=== PATIENT | female | born 1945 | race Two or more races ===

== ENCOUNTER → 2018-01-27 | Outpatient (CLI) | payer BC ==
--- NOTE | 2018-01-27 17:34 | CARD ---
MR#: [id number] Date of Study: 01/27/2018 Ordering Physician: GIOVANNI PACHECO, Referring Physician: GIOVANNI PACHECO, Tech: Lisa Brown APPROVED REPORT EXAM: Two-dimensional and M-mode echocardiogram with Doppler and color Doppler. Other Information Quality : GoodHR: 64bpm INDICATION Dyspnea 2D DIMENSIONS RVDd2.3 (2.9-3.5cm)Left Atrium(2D)3.4 (1.6-4.0cm) IVSd1.4 (0.7-1.1cm)Aortic Root(2D)3.2 (2.0-3.7cm) LVDd4.2 (3.9-5.9cm)LVOT Diameter1.9 (1.8-2.4cm) PWd1.1 (0.7-1.1cm)LVDs3.0 (2.5-4.0cm) FS (%) 29.1 %SV44.6 ml LVEF(%)55.0 (>50%) Aortic Valve AoV Peak Malachi.163.6cm/sAoV VTI34.2cm AO Peak GR.10.7mmHgLVOT Peak Malachi.106.0cm/s AO Mean GR.6mmHgAVA (VMAX)1.86cm2 AI P 1/2 [id number] Mitral Valve MV E Clqsgata30.7cm/sMV DECEL [id number] MV A Hinmqmoy83.9cm/sE/A Ratio1.3 Tricuspid Valve TR P. Metvrgoc345nx/sRAP [id number] TR Peak Gr.[id number] Pulmonary Vein S1 Pfvalwes70.6cm/sD2 Gbjmgzli03.4cm/s PVa [id number] LEFT VENTRICLE The left ventricle is normal size. There is concentric left ventricular hypertrophy. The left ventric ular systolic function is normal and the ejection fraction is within normal range. The Ejection Fract ion is 55%. Transmitral Doppler flow pattern is normal for age. AORTIC VALVE The aortic valve is calcified but opens well. Doppler and Color Flow revealed mild aortic regurgitati on. There is no significant aortic valvular stenosis. MITRAL VALVE Mitral annular calcification is mild. Doppler and Color-flow revealed trace mitral regurgitation. TRICUSPID VALVE The tricuspid valve is normal in structure and function. Doppler and Color Flow revealed trace tricus pid regurgitation. PULMONIC VALVE The pulmonary valve is normal in structure and function. Doppler and Color Flow revealed no pulmonic valvular regurgitation. GREAT VESSELS The aortic root is normal in size. The IVC is normal in size and collapses >50% with inspiration. PERICARDIAL EFFUSION There is no evidence of significant pericardial effusion. Critical Notification Critical Value: No <Conclusion> The left ventricular systolic function is normal and the ejection fraction is within normal range. T he Ejection Fraction is 55%. There is concentric left ventricular hypertrophy. The aortic valve is calcified but opens well. Doppler and Color Flow revealed mild aortic regurgitation. Doppler and Color-flow revealed trace mitral regurgitation. Doppler and Color Flow revealed trace tricuspid regurgitation. The pulmonary valve is normal in structure and function. There is no evidence of significant pericardial effusion. Signed by : Giovanni Pacheco MD Electronically Approved : 01/27/2018 17:33:48
== END | disposition home or self-care (01) ==
LOC: ECHO 09:49
PROVIDERS: ATTEND Internal Medicine Cardiovascular Disease
DX: I35.1 Nonrheumatic aortic (valve) insufficiency (principal); I51.7 Cardiomegaly
CPT/HCPCS: 93306